=== PATIENT | female | born 1935 | race American Indian/Alaskan Native ===

== ENCOUNTER 2017-12-07 08:19 | Day surgery (SDC) | payer MEDICARE, BC ==
[~2017-12-07] VITALS: Ht 170.2 cm; Wt 47.5 kg
[2017-12-07] VITALS (13 sets, daily range): BP systolic 73–105; BP diastolic 44–65
[2017-12-07] MEDS ORDERED: LOSA25TA96 PO (09:08)
[2017-12-07] MEDS ORDERED: TIOT18CA3 INH (09:09)
[2017-12-07] MEDS ORDERED: CYAN100097 PO (09:10)
[2017-12-07] MEDS ORDERED: CALC-854 PO (09:10)
[2017-12-07] MEDS ORDERED: CHOL10002 PO (09:11)
[2017-12-07] MEDS ORDERED: POTA10TA19 PO (09:11)
[2017-12-07] MEDS ORDERED: ASPI81TA52 PO (09:12)
[2017-12-07] MEDS ORDERED: MOME13HF2 INH ×2 (09:13→09:22)
[2017-12-07] MEDS ORDERED: FURO-150 PO (09:13)
[2017-12-07] MEDS ORDERED: SACU1TAB PO (09:15)
[2017-12-07 09:16] LABS: BASOPHILS % (AUTO) 0.3 % (0-1); EOSINOPHILS # (AUTO) 0.1 X10'3 (0-0.9); EOSINOPHILS % (AUTO) 1.5 % (0-6); HEMATOCRIT 41.1 % (35.0-45.0); HEMOGLOBIN 14.4 g/dl (12.0-16.0); LYMPHOCYTES # (AUTO) 0.5 X10'3 (1.1-4.8); LYMPHOCYTES % (AUTO) 5.5 % (21-51); MEAN CORPUSCULAR HEMOGLOBIN 30.7 PG (27.0-31.0); MEAN CORPUSCULAR VOLUME 87.8 FL (78-98); MEAN PLATELET VOLUME 8.1 FL (7.4-10.4); MONOCYTES # (AUTO) 0.4 X10'3 (0-0.9); MONOCYTES % (AUTO) 4.2 % (2-12); NEUTROPHILS # (AUTO) 8.7 X10'3 (1.8-7.7); NEUTROPHILS % (AUTO) 88.5 % (42-75); PLATELET COUNT 291 X10'3 (140-440); RED BLOOD COUNT 4.67 X10'6 (4.20-5.60); WHITE BLOOD COUNT 9.8 X10'3 (4.5-11.0)
[2017-12-07] MEDS ORDERED: CARV-50 PO (09:16)
[2017-12-07] MEDS ORDERED: PRED50TA PO (09:19)
[2017-12-07] MEDS ORDERED: NYST1000 PO (09:20)
[2017-12-07] MEDS ORDERED: HYDR-565 PO (09:21)
[2017-12-07] MEDS ORDERED: DENO60DI SQ (09:31)
[2017-12-07] MEDS ORDERED: fentaNYL/PF 50MCG/1 ML 2ML syringe IV PRN (10:00)
[2017-12-07] MEDS ORDERED: midazolam 2 mg/2 ml injection IV PRN (10:00)
[2017-12-07] MEDS ORDERED: fentaNYL/PF 50MCG/1 ML 2ML syringe ONE (10:33)
[2017-12-07] MEDS ORDERED: midazolam 2 mg/2 ml injection ONE (10:33)
== END 2017-12-07 15:00 | disposition home or self-care (01) ==
LOC: SSTAY O 08:19
PROVIDERS: ATTEND Radiology Diagnostic Radiology
DX: C34.32 Malignant neoplasm of lower lobe, left bronchus or lung (principal); I11.0 Hypertensive heart disease with heart failure; I50.9 Heart failure, unspecified; I42.0 Dilated cardiomyopathy; J44.9 Chronic obstructive pulmonary disease, unspecified; M81.0 Age-related osteoporosis without current pathological fracture; Z79.82 Long term (current) use of aspirin; Z95.0 Presence of cardiac pacemaker; Z85.42 Personal history of malignant neoplasm of other parts of uterus; Z90.710 Acquired absence of both cervix and uterus; Z79.01 Long term (current) use of anticoagulants; Z79.899 Other long term (current) drug therapy; Z98.890 Other specified postprocedural states
CPT/HCPCS: 32405; 36415; 71045; 77012; 85025; J2250; J3010; J7030